=== PATIENT | female | born 2000 | race Two or more races ===

== ENCOUNTER 2021-07-14 21:26 | Emergency (ER) | payer MEDICAID, OTHER ==
[~2021-07-14] VITALS: Ht 160 cm; Wt 54.4 kg
[2021-07-14 21:28] VITALS: BP 120/69
== END 2021-07-14 22:35 | disposition left against medical advice (07) ==
LOC: ER 21:26
DX: F41.9 Anxiety disorder, unspecified (principal); Z53.21 Procedure and treatment not carried out due to patient leaving prior to being seen by health care provider

== ENCOUNTER 2023-08-16 18:16 | Emergency (ER) | payer SELFPAY ==
[~2023-08-16] VITALS: Ht 160 cm; Wt 52.2 kg
[2023-08-16] MEDS ORDERED: LIDOCAINE VISCOUS 2% 15ML UD MT ONE (18:30)
[2023-08-16] MEDS ORDERED: ONDANSETRON HCL 4 MG/2 ML VIAL IM ONE (18:30)
[2023-08-16] MEDS ORDERED: MAALOX PLUS or MAALOX 30 ML PO ONE (18:30)
[2023-08-16 19:06] LABS: Basophils # (auto) 0 10 ^3/uL (0-0.2); Basophils % (auto) 0.3 % (0.0-2.0); Eosinophils # (auto) 0.1 10 ^3/uL (0-0.8); Eosinophils % (auto) 1.3 % (0.0-7.0); Hemoglobin 14.4 g/dL (12.2-16.2); Lymphocytes # (auto) 2.3 10 ^3/uL (0.4-5.4); Mean Corpuscular Hemoglobin 28.2 pg (28.0-32.0); Mean Corpuscular Hgb Conc. 32.8 g/dL (32.0-36.0); Monocytes # (auto) 0.4 10 ^3/uL (0-1.3); Monocytes % (auto) 6.1 % (0.0-12.0); Neutrophils # (auto) 4.1 10 ^3/uL (1.6-8.6); Neutrophils % (auto) 59.3 % (37.0-80.0); Red Blood Cells 5.11 10^6/uL (4.0-5.20); Red Cell Distribution Width 13.9 % (11.8-14.3)
[2023-08-16 19:12] LABS: Anion Gap 8 (5-15); Carbon Dioxide 24 mmol/L (20-30); Chloride 105 mmol/L (98-107); Potassium 4.2 mmol/L (3.5-5.1); Sodium 137 mmol/L (136-145)
[2023-08-16 19:13] LABS: Urine Bacteria FEW /hpf (None Seen); Urine Blood Negative /uL (Negative); Urine Clarity HAZY (Clear); Urine Color Yellow (Yellow); Urine Mucus FEW (None Seen); Urine Protein, UAD TRACE (Negative); Urine Specific Gravity 1.031 (1.001-1.035); Urine Urobilinogen Normal (Negative); Urine WBC 3 /hpf (0 - 5); Urine pH 5.5 (5.0-8.0)
[2023-08-16 19:13] LABS: Calcium 9.4 mg/dL (8.7-10.4)
[2023-08-16 19:18] LABS: BUN/Creatinine Ratio 18.6 (10.0-20.0); Blood Urea Nitrogen 13 mg/dL (9-23); Glucose 92 mg/dL (74-106); Lipase 48 U/L (12-53)
[2023-08-16] MEDS ORDERED: PANTOPRAZOLE 40 MG TAB PO ONE (20:00)
[2023-08-16] MEDS ORDERED: METOCLOPRAMIDE HCL 5MG/ml INJ 2ml VIAL IM ONE (20:00)
[2023-08-16] MEDS ORDERED: NITROFURANTOIN 100 mg CAP PO ONE (20:00)
[2023-08-16] MEDS ORDERED: HYDROcodone-ACET 10/325MG TAB PO ONE (20:45)
[2023-08-16 20:53] VITALS: BP 131/83; PULSE 110; RESP 18; TEMP 97.9; O2SAT 96
[2023-08-16] MEDS ORDERED: METO-281 PO (21:08)
[2023-08-16] MEDS ORDERED: ZOFR4T PO (21:08)
[2023-08-16] MEDS ORDERED: NITR-87 PO (21:08)
[2023-08-16] MEDS ORDERED: ESOM40CA39 PO (21:08)
== END 2023-08-16 21:42 | disposition home or self-care (01) ==
LOC: ER 18:16 → EEVIPCON 18:16 → ER 21:42
DX: K25.9 Gastric ulcer, unspecified as acute or chronic, without hemorrhage or perforation (principal); R10.2 Pelvic and perineal pain; N39.0 Urinary tract infection, site not specified
CPT/HCPCS: 36415; 80048; 81001; 83690; 84702; 85025; 96372; 99284; J2405; J2765